=== PATIENT | female | born 1940 | race African-American/Black ===

== ENCOUNTER 2018-11-17 17:14 | Inpatient (IN) | payer MEDICARE, BC ==
[~2018-11-17] VITALS: Ht 160 cm; Wt 67.1 kg
[2018-11-17] VITALS (11 sets, daily range): BP systolic 89–126; BP diastolic 48–93
[~2018-11-17 17:14] MED LIST: COLC0.6T66 PO; HYDR-4067 PO; INDO25CA18 PO; INSLAN SQ; LEVO112T7 PO; METF-414 PO; METO-539 PO; PRAV20TA57 PO; SULFAMETHOXAZOLE; TRIMETHOPRIM; VALS160T2 PO; WARF-53 PO; [UNRECOGNIZED DRUG - OTHER] PO
[2018-11-17 18:11] LABS: BASOPHILS % 0.2 % (0.0-2.0); HEMATOCRIT. 24.5 % (36.0-48.0); LYMPHOCYTES % 9.3 % (20.0-50.0); MEAN CORPUSCULAR HEMOGLOBIN 28.7 pg (28.0-32.0); MEAN CORPUSCULAR VOLUME 88.1 fL (81.0-99.0); MEAN PLATELET VOLUME 9.6 fl (7.4-10.4); MONOCYTES % 6.3 % (2.0-8.0); NEUTROPHILS % 84.2 % (40.0-76.0); PLATELET 182 x1000/uL (130-400); RED BLOOD CELL COUNT 2.79 mill/uL (4.2-5.4); RED CELL DISTRIBUTION WIDTH 14.3 % (11.6-14.6)
[2018-11-17 18:17] LABS: CHLORIDE 97 mEq/L (98-107)
[2018-11-17 18:20] LABS: INR 2.2; PARTIAL THROMBOPLASTIN TIME 47.4 sec (23.4-31.0); PROTHROMBIN TIME 21.4 sec (9.6-11.0)
[2018-11-17 18:26] LABS: BETA HYDROXYBUTYRATE 2.2 mMol/L (0.0-0.3); T4 FREE 0.63 ng/dL (0.76-1.46)
[2018-11-17] MEDS ORDERED: ONDANSETRON HCL 4MG/2ML INJ IV ONE (18:30)
[2018-11-17] MEDS ORDERED: FAMOTIDINE 20MG/2ML VIAL IV ONE (18:30)
[2018-11-17 18:42] LABS: BG BASE EXCESS -9.9 mmol/L (-2.0-2.0); BG CARBOXYHEMOGLOBIN 0.3 % (0.5-1.5); BG DEOXYHEMOGLOBIN 13.2 % (0.0-5.0); BG FRACTION INSPIRED OXYGEN 32; BG HCO3 ACT 13.4 mmol/L (22.0-26.0); BG METHEMOGLOBIN 0.2 % (0.0-1.5); BG OXYGEN SATURATION 86.7 % (92.0-98.5); BG OXYHEMOGLOBIN 86.3 % (94.0-97.0); BG PCO2 21.8 mmHg (35.0-45.0); BG PH 7.405 (7.350-7.450); BG PO2 59.1 mmHg (75.0-100.0); BG SAMPLE SITE RIGHT RADIAL; BG TOTAL HEMOGLOBIN 9.1 g/dL (12.0-18.0); BG VENT MODE NASAL CANNULA
[2018-11-17] MEDS ORDERED: MAGNESIUM/ALUMINUM HYDROXIDE/SIMETHICONE 30ML UDC PO PRN (19:30)
[2018-11-17] MEDS ORDERED: NITROGLYCERIN 0.4MG TABLET SL SL PRN (19:30)
[2018-11-17] MEDS ORDERED: MORPHINE SULFATE 4 MG/ML CPJ (NOT FOR IM USE) IV PRN (19:30)
[2018-11-17] MEDS ORDERED: ACETAMINOPHEN 325MG TABLET PO PRN (19:30)
[2018-11-17] MEDS ORDERED: CLONIDINE 0.1MG TABLET PO PRN (19:30)
[2018-11-17] MEDS ORDERED: INSULIN REGULAR (HUMULIN R) 300UNITS/3ML IV ONE (19:30)
[2018-11-17] MEDS ORDERED: IPRATROPIUM/ALBUTEROL 0.5-3(2.5)MG/3ML NEB INH PRN (19:30)
[2018-11-17] MEDS ORDERED: ZOLPIDEM TARTRATE 5MG TABLET PO PRN (19:30)
[2018-11-17] MEDS ORDERED: FUROSEMIDE 20MG/2ML VIAL IVP ONE (19:30)
[2018-11-17] MEDS ORDERED: TRAMADOL 50MG TABLET PO PRN (19:30)
[2018-11-17] MEDS ORDERED: GUAIFENESIN 200MG/10ML SUGAR FREE UDC PO PRN (19:30)
[2018-11-17] MEDS ORDERED: DEXTROSE 50% WATER 50ML SYRINGE IV PRN (19:30)
[2018-11-17] MEDS ORDERED: DOCUSATE SODIUM 100MG CAPSULE PO PRN (19:30)
[2018-11-17] MEDS ORDERED: CEFTRIAXONE 1 G PREMIX 50 ML IV ONE (19:45)
[2018-11-17] MEDS ORDERED: AZITHROMYCIN 500 MG in DEXT 5% WATER 250 ML IV SCH (20:15)
[2018-11-17 20:31] LABS: FOLIC ACID (FOLATE) SERUM >20 ng/mL ng/mL (>5.38)
[2018-11-17 20:42] LABS: VITAMIN B12 SERUM >2000 pg/mL pg/mL (211-911)
[2018-11-17] MEDS: GUAIFENESIN/DM 600MG/30MG ER TAB 12HR PO SCH (21:00)
[2018-11-17] MEDS ORDERED: BLOOD SUGAR DIAGNOSTIC STRIP TEST SCH (21:00)
[2018-11-17] MEDS: ASCORBIC ACID 500 MG TABLET PO SCH (21:00)
[2018-11-17] MEDS ORDERED: METOLAZONE 10MG TABLET PO NR (21:30)
[2018-11-17] MEDS ORDERED: METOPROLOL TARTRATE 25MG TABLET PO SCH (21:30)
[2018-11-17] MEDS ORDERED: INSULIN LISPRO 100 UNITS/ML SUBCUT SCH (21:30)
[2018-11-17] MEDS: FAMOTIDINE 20MG TABLET PO SCH (21:45)
[2018-11-17] MEDS ORDERED: SODIUM CHLORIDE 0.45% 1,000 ML IV SCH (21:45)
[2018-11-17 22:00] LABS: PHOSPHORUS 4.8 mg/dL (2.5-4.9)
[2018-11-17] MEDS ORDERED: WARFARIN SODIUM 2MG TABLET PO NR (22:00)
[2018-11-17] MEDS: HYDRALAZINE HCL 50MG TABLET PO SCH (22:00)
[2018-11-17] MEDS ORDERED: INSULIN GLARGINE UD 100 UNITS/ML SYR SUBCUT SCH (22:30)
[2018-11-17] MEDS: FUROSEMIDE 40MG/4ML VIAL IVP SCH (22:57)
[2018-11-17 22:58] LABS: CHLORIDE 97 mEq/L (98-107)
[2018-11-17 22:59] LABS: HEMATOCRIT. 23.8 % (36.0-48.0); HEMOGLOBIN. 7.6 g/dL (12.0-16.0); MEAN CORPUSCULAR HEMOGLOBIN 28.5 pg (28.0-32.0); MEAN CORPUSCULAR VOLUME 89.2 fL (81.0-99.0); MEAN PLATELET VOLUME 9.8 fl (7.4-10.4); PLATELET 170 x1000/uL (130-400); RED BLOOD CELL COUNT 2.67 mill/uL (4.2-5.4); RED CELL DISTRIBUTION WIDTH 14.6 % (11.6-14.6)
[2018-11-17 23:15] LABS: PLATELET ESTIMATE NORMAL
[2018-11-18] VITALS (99 sets, daily range): BP systolic 67–192; BP diastolic 18–138
[2018-11-18] MEDS: BLOOD SUGAR DIAGNOSTIC STRIP TEST SCH ×6 (00:03→19:48)
[2018-11-18] MEDS: INSULIN LISPRO 100 UNITS/ML SUBCUT SCH ×6 (00:06→19:48)
[2018-11-18] MEDS: HYDRALAZINE HCL 50MG TABLET PO SCH (05:14)
[2018-11-18 06:09] LABS: BASOPHILS % 0.3 % (0.0-2.0); HEMATOCRIT. 23.9 % (36.0-48.0); HEMOGLOBIN. 7.9 g/dL (12.0-16.0); LYMPHOCYTES % 11.1 % (20.0-50.0); MEAN CORPUSCULAR HEMOGLOBIN 28.6 pg (28.0-32.0); MEAN CORPUSCULAR VOLUME 86.4 fL (81.0-99.0); MEAN PLATELET VOLUME 9.8 fl (7.4-10.4); NEUTROPHILS % 79.6 % (40.0-76.0); PLATELET 172 x1000/uL (130-400); RED BLOOD CELL COUNT 2.76 mill/uL (4.2-5.4); RED CELL DISTRIBUTION WIDTH 14.7 % (11.6-14.6)
[2018-11-18 06:12] LABS: INR 2.6; PROTHROMBIN TIME 25.9 sec (9.6-11.0)
[2018-11-18 06:20] LABS: PHOSPHORUS 4.6 mg/dL (2.5-4.9)
[2018-11-18 06:21] LABS: BETA HYDROXYBUTYRATE 0.2 mMol/L (0.0-0.3)
[2018-11-18] MEDS ORDERED: LEVOTHYROXINE SODIUM 125MCG TABLET PO SCH (06:30)
[2018-11-18] MEDS: FUROSEMIDE 40MG/4ML VIAL IVP SCH (07:33)
[2018-11-18] MEDS: SODIUM CHLORIDE 0.9% 1,000 ML IV SCH (08:26)
[2018-11-18 08:37] LABS: CHLORIDE 98 mEq/L (98-107)
[2018-11-18 08:59] LABS: BG BASE EXCESS -7.2 mmol/L (-2.0-2.0); BG CARBOXYHEMOGLOBIN 0.3 % (0.5-1.5); BG DEOXYHEMOGLOBIN 2.8 % (0.0-5.0); BG FRACTION INSPIRED OXYGEN 70; BG HCO3 ACT 17.1 mmol/L (22.0-26.0); BG OXYGEN SATURATION 97.2 % (92.0-98.5); BG OXYHEMOGLOBIN 96.9 % (94.0-97.0); BG PCO2 29.9 mmHg (35.0-45.0); BG PH 7.375 (7.350-7.450); BG PO2 104.1 mmHg (75.0-100.0); BG SAMPLE SITE RIGHT RADIAL; BG TOTAL HEMOGLOBIN 8.8 g/dL (12.0-18.0); BG VENT MODE VAPOTHERM
[2018-11-18] MEDS ORDERED: CEFTRIAXONE 1 G PREMIX 50 ML IV SCH ×2 (09:00→21:00)
[2018-11-18] MEDS: ASCORBIC ACID 500 MG TABLET PO SCH ×2 (09:47→20:46)
[2018-11-18] MEDS: ZINC SULFATE 220 MG ( 50 ) CAPSULE PO SCH (09:47)
[2018-11-18] MEDS: ASPIRIN 325MG EC TABLET PO SCH (09:47)
[2018-11-18] MEDS: FAMOTIDINE 20MG TABLET PO SCH (09:47)
[2018-11-18] MEDS: GUAIFENESIN/DM 600MG/30MG ER TAB 12HR PO SCH ×2 (09:47→20:46)
[2018-11-18 10:05] LABS: CLARITY URINE TURBID (CLEAR); COLOR URINE YELLOW (YELLOW); KETONES URINE NEGATIVE (NEGATIVE); LEUKOCYTE ESTERASE URINE 3+ (NEGATIVE); NITRITE URINE NEGATIVE (NEGATIVE); OCCULT BLOOD URINE 2+ (NEGATIVE); PROTEIN URINE 3+ (NEGATIVE); SPECIFIC GRAVITY URINE 1.016 (1.005-1.030); UROBILINOGEN URINE 0.2 E.U./dL (0.2-1.0)
[2018-11-18] MEDS ORDERED: NOREPINEPHRINE 4MG in DEXT 5% WATER 250ML IV PRN (11:00)
[2018-11-18] MEDS ORDERED: LIDOCAINE HCL 1% 20ML VIAL (Pyxis) INJ ONE (13:26)
[2018-11-18] MEDS ORDERED: HEPARIN 1000 UNITS/ML 10ML ONE (13:51)
[2018-11-18] MEDS ORDERED: WARFARIN SODIUM 2MG TABLET PO SCH (18:00)
[2018-11-18] MEDS ORDERED: VANCOMYCIN 1250MG in DEXTROSE 5% WATER 250ML IV NR (18:00)
[2018-11-18] MEDS ORDERED: WARFARIN SODIUM 3MG TABLET PO SCH (18:00)
[2018-11-18 18:06] LABS: HEPATITIS B SURFACE ANTIGEN NEGATIVE
[2018-11-18 18:36] LABS: HEPATITIS A AB IGM NEGATIVE (NEGATIVE)
[2018-11-18] MEDS ORDERED: AZITHROMYCIN 500 MG in DEXT 5% WATER 250 ML IV SCH ×4 (20:00)
[2018-11-18] MEDS ORDERED: INSULIN GLARGINE UD 100 UNITS/ML SYR SUBCUT SCH (23:00)
[2018-11-19] VITALS (81 sets, daily range): BP systolic 80–160; BP diastolic 36–87
[2018-11-19] MEDS: BLOOD SUGAR DIAGNOSTIC STRIP TEST SCH ×6 (00:04→23:21)
[2018-11-19] MEDS: SODIUM CHLORIDE 0.9% 1,000 ML IV SCH (03:58)
[2018-11-19 05:17] LABS: BASOPHILS % 0.2 % (0.0-2.0); EOSINOPHILS % 0.1 % (0.0-5.0); LYMPHOCYTES % 9.2 % (20.0-50.0); MEAN CORPUSCULAR HEMOGLOBIN 28.6 pg (28.0-32.0); MEAN CORPUSCULAR VOLUME 85.2 fL (81.0-99.0); MONOCYTES % 6.8 % (2.0-8.0); NEUTROPHILS % 83.7 % (40.0-76.0); PLATELET 134 x1000/uL (130-400); RED CELL DISTRIBUTION WIDTH 14.5 % (11.6-14.6)
[2018-11-19 05:25] LABS: CHLORIDE 99 mEq/L (98-107)
[2018-11-19 05:28] LABS: HEMATOCRIT. 20.4 % (36.0-48.0); HEMOGLOBIN. 6.9 g/dL (12.0-16.0)
[2018-11-19 05:34] LABS: PHOSPHORUS 3.7 mg/dL (2.5-4.9)
[2018-11-19 05:35] LABS: PROTHROMBIN TIME 45.2 sec (9.6-11.0)
[2018-11-19 05:49] LABS: INR 4.7
[2018-11-19] MEDS: INSULIN LISPRO 100 UNITS/ML SUBCUT SCH ×5 (06:00→23:21)
[2018-11-19] MEDS: ASCORBIC ACID 500 MG TABLET PO SCH ×2 (08:40→21:00)
[2018-11-19] MEDS: ASPIRIN 325MG EC TABLET PO SCH (08:40)
[2018-11-19] MEDS: FAMOTIDINE 20MG TABLET PO SCH (08:40)
[2018-11-19] MEDS: ZINC SULFATE 220 MG ( 50 ) CAPSULE PO SCH (08:46)
[2018-11-19] MEDS: GUAIFENESIN/DM 600MG/30MG ER TAB 12HR PO SCH ×2 (08:46→21:00)
[2018-11-19 10:19] LABS: BG BASE EXCESS 1.5 mmol/L (-2.0-2.0); BG CARBOXYHEMOGLOBIN 0.3 % (0.5-1.5); BG FRACTION INSPIRED OXYGEN 28; BG METHEMOGLOBIN 0.6 % (0.0-1.5); BG OXYHEMOGLOBIN 94.1 % (94.0-97.0); BG PCO2 34.4 mmHg (35.0-45.0); BG PO2 81.6 mmHg (75.0-100.0); BG SAMPLE SITE RIGHT BRACHIAL; BG TOTAL HEMOGLOBIN 7.5 g/dL (12.0-18.0); BG VENT MODE NASAL CANNULA
[2018-11-19] MEDS: LEVOTHYROXINE SODIUM 100 MCG/ VIAL IV SCH (10:35)
[2018-11-19] MEDS: PIPERACILLIN/TAZ 3.375G PREMIX 50 ML IV SCH ×2 (13:09→23:32)
[2018-11-19] MEDS ORDERED: IPRATROPIUM/ALBUTEROL 0.5-3(2.5)MG/3ML NEB HHN PRN (14:00)
[2018-11-19] MEDS ORDERED: VANCOMYCIN 750 MG PREMIX 150 ML IV SCH (15:00)
[2018-11-19] MEDS: IPRATROPIUM/ALBUTEROL 0.5-3(2.5)MG/3ML NEB HHN SCH (21:42)
[2018-11-20] VITALS (41 sets, daily range): BP systolic 106–142; BP diastolic 48–76
[2018-11-20] MEDS: SODIUM CHLORIDE 0.9% 1,000 ML IV SCH
[2018-11-20] MEDS: IPRATROPIUM/ALBUTEROL 0.5-3(2.5)MG/3ML NEB HHN SCH ×4 (02:27→20:03)
[2018-11-20 05:05] LABS: BASOPHILS % 0.3 % (0.0-2.0); EOSINOPHILS % 0.6 % (0.0-5.0); HEMATOCRIT. 24.8 % (36.0-48.0); HEMOGLOBIN. 8.3 g/dL (12.0-16.0); LYMPHOCYTES % 8.2 % (20.0-50.0); MEAN CORPUSCULAR HEMOGLOBIN 28.1 pg (28.0-32.0); MEAN CORPUSCULAR VOLUME 84.2 fL (81.0-99.0); MEAN PLATELET VOLUME 9.8 fl (7.4-10.4); NEUTROPHILS % 85.9 % (40.0-76.0); PLATELET 122 x1000/uL (130-400); RED BLOOD CELL COUNT 2.95 mill/uL (4.2-5.4); RED CELL DISTRIBUTION WIDTH 15.6 % (11.6-14.6)
[2018-11-20 05:21] LABS: PROTHROMBIN TIME 61.9 sec (9.6-11.0)
[2018-11-20] MEDS: INSULIN LISPRO 100 UNITS/ML SUBCUT SCH ×3 (06:00→18:00)
[2018-11-20] MEDS: BLOOD SUGAR DIAGNOSTIC STRIP TEST SCH ×3 (06:42→18:31)
[2018-11-20 07:22] LABS: INR 6.6
[2018-11-20 08:11] LABS: HIV SCREEN 4G Non Reactive (Non Reactive)
[2018-11-20] MEDS: FAMOTIDINE 20MG TABLET PO SCH (09:00)
[2018-11-20] MEDS: ZINC SULFATE 220 MG ( 50 ) CAPSULE PO SCH (09:00)
[2018-11-20] MEDS: GUAIFENESIN/DM 600MG/30MG ER TAB 12HR PO SCH ×2 (09:00→20:52)
[2018-11-20] MEDS: ASCORBIC ACID 500 MG TABLET PO SCH ×2 (09:00→20:51)
[2018-11-20] MEDS: LEVOTHYROXINE SODIUM 100 MCG/ VIAL IV SCH (10:16)
[2018-11-20] MEDS: PIPERACILLIN/TAZ 3.375G PREMIX 50 ML IV SCH (11:46)
[2018-11-21] VITALS (63 sets, daily range): BP systolic 90–141; BP diastolic 49–79
[2018-11-21] MEDS: BLOOD SUGAR DIAGNOSTIC STRIP TEST SCH ×5 (00:09→23:57)
[2018-11-21] MEDS: PIPERACILLIN/TAZ 3.375G PREMIX 50 ML IV SCH ×2 (00:14→12:27)
[2018-11-21] MEDS: INSULIN LISPRO 100 UNITS/ML SUBCUT SCH ×5 (00:14→23:59)
[2018-11-21] MEDS: IPRATROPIUM/ALBUTEROL 0.5-3(2.5)MG/3ML NEB HHN SCH ×4 (01:42→20:43)
[2018-11-21 05:37] LABS: HEMATOCRIT. 24.9 % (36.0-48.0); MEAN CORPUSCULAR HEMOGLOBIN 27.6 pg (28.0-32.0); MEAN CORPUSCULAR VOLUME 85.9 fL (81.0-99.0); MEAN PLATELET VOLUME 9.2 fl (7.4-10.4); PLATELET 155 x1000/uL (130-400); RED CELL DISTRIBUTION WIDTH 16.2 % (11.6-14.6)
[2018-11-21 05:45] LABS: CHLORIDE 94 mEq/L (98-107)
[2018-11-21 05:52] LABS: PHOSPHORUS 5.7 mg/dL (2.5-4.9)
[2018-11-21 05:57] LABS: PROTHROMBIN TIME 53.4 sec (9.6-11.0)
[2018-11-21] MEDS: LEVOTHYROXINE SODIUM 100 MCG/ VIAL IV SCH (06:12)
[2018-11-21 07:03] LABS: INR 5.6
[2018-11-21] MEDS: GUAIFENESIN/DM 600MG/30MG ER TAB 12HR PO SCH ×2 (09:00→21:00)
[2018-11-21] MEDS: SILVER SULFADIAZINE 1% CREAM 25GM TOP SCH ×2 (09:00→21:00)
[2018-11-21] MEDS: ALBUMIN HUMAN 25GM/100ML (25%) IV SCH ×2 (11:03→18:40)
[2018-11-21] MEDS ORDERED: INSULIN GLARGINE UD 100 UNITS/ML SYR SUBCUT SCH (11:30)
[2018-11-21] MEDS: FAMOTIDINE 20MG TABLET PO SCH (11:49)
[2018-11-21] MEDS: ASCORBIC ACID 500 MG TABLET PO SCH ×2 (11:49→21:00)
[2018-11-21] MEDS: ZINC SULFATE 220 MG ( 50 ) CAPSULE PO SCH (11:49)
[2018-11-21 15:16] LABS: PLATELET ESTIMATE NORMAL
[2018-11-21] MEDS: CEFAZOLIN 2000MG in DEXTROSE 5% WATER 100ML IV SCH (16:59)
[2018-11-22] VITALS (75 sets, daily range): BP systolic 98–161; BP diastolic 51–96
[2018-11-22] MEDS: IPRATROPIUM/ALBUTEROL 0.5-3(2.5)MG/3ML NEB HHN SCH ×4 (01:57→20:56)
[2018-11-22] MEDS: ONDANSETRON HCL 4MG/2ML INJ IV PRN (02:06)
[2018-11-22] MEDS: ALBUMIN HUMAN 25GM/100ML (25%) IV SCH (02:10)
[2018-11-22] MEDS: BLOOD SUGAR DIAGNOSTIC STRIP TEST SCH ×3 (05:24→18:00)
[2018-11-22] MEDS: LEVOTHYROXINE SODIUM 100 MCG/ VIAL IV SCH (05:24)
[2018-11-22] MEDS: INSULIN LISPRO 100 UNITS/ML SUBCUT SCH ×3 (05:25→18:00)
[2018-11-22 05:35] LABS: HEMATOCRIT. 23.7 % (36.0-48.0); HEMOGLOBIN. 7.6 g/dL (12.0-16.0); MEAN CORPUSCULAR HEMOGLOBIN 27.7 pg (28.0-32.0); MEAN CORPUSCULAR VOLUME 86.6 fL (81.0-99.0); PLATELET 144 x1000/uL (130-400); RED BLOOD CELL COUNT 2.74 mill/uL (4.2-5.4); RED CELL DISTRIBUTION WIDTH 16.8 % (11.6-14.6)
[2018-11-22 05:36] LABS: CHLORIDE 101 mEq/L (98-107)
[2018-11-22] MEDS: ZINC SULFATE 220 MG ( 50 ) CAPSULE PO SCH (08:46)
[2018-11-22] MEDS: ASCORBIC ACID 500 MG TABLET PO SCH ×2 (08:46→21:49)
[2018-11-22] MEDS: FAMOTIDINE 20MG TABLET PO SCH (08:46)
[2018-11-22] MEDS: GUAIFENESIN/DM 600MG/30MG ER TAB 12HR PO SCH ×2 (08:46→21:49)
[2018-11-22] MEDS: SILVER SULFADIAZINE 1% CREAM 25GM TOP SCH ×2 (08:47→21:50)
[2018-11-22] MEDS: INSULIN GLARGINE UD 100 UNITS/ML SYR SUBCUT SCH (09:02)
[2018-11-22 09:03] LABS: NUCLEATED RED BLOOD CELLS 1 /100 WBC; PLATELET ESTIMATE NORMAL
[2018-11-22] MEDS ORDERED: METRONIDAZOLE 500 MG PREMIX 100 ML IV SCH (12:00)
[2018-11-22] MEDS: CEFAZOLIN 2000MG in DEXTROSE 5% WATER 100ML IV SCH (15:01)
[2018-11-23] VITALS (12 sets, daily range): BP systolic 115–144; BP diastolic 49–80
[2018-11-23] MEDS: ACETYLCYSTEINE 100MG/ML 10% VIAL 4ML INH SCH ×3 (01:41→14:06)
[2018-11-23] MEDS: IPRATROPIUM/ALBUTEROL 0.5-3(2.5)MG/3ML NEB HHN SCH ×4 (01:41→20:50)
[2018-11-23] MEDS: BLOOD SUGAR DIAGNOSTIC STRIP TEST SCH ×4 (06:42→18:25)
[2018-11-23] MEDS: INSULIN LISPRO 100 UNITS/ML SUBCUT SCH ×4 (06:49→18:30)
[2018-11-23 07:04] LABS: HEMATOCRIT. 24.3 % (36.0-48.0); HEMOGLOBIN. 7.7 g/dL (12.0-16.0); MEAN CORPUSCULAR HEMOGLOBIN 27.8 pg (28.0-32.0); MEAN CORPUSCULAR VOLUME 87.8 fL (81.0-99.0); PLATELET 166 x1000/uL (130-400); RED BLOOD CELL COUNT 2.77 mill/uL (4.2-5.4)
[2018-11-23 07:12] LABS: INR 3.8; PROTHROMBIN TIME 36.8 sec (9.6-11.0)
[2018-11-23 07:18] LABS: CHLORIDE 99 mEq/L (98-107)
[2018-11-23 07:26] LABS: PHOSPHORUS 5.8 mg/dL (2.5-4.9)
[2018-11-23] MEDS: INSULIN GLARGINE UD 100 UNITS/ML SYR SUBCUT SCH (10:00)
[2018-11-23 14:06] LABS: PLATELET ESTIMATE NORMAL
[2018-11-23] MEDS: SILVER SULFADIAZINE 1% CREAM 25GM TOP SCH ×2 (16:35→21:00)
[2018-11-23] MEDS: LEVOTHYROXINE SODIUM 100 MCG/ VIAL IV SCH (16:35)
[2018-11-23] MEDS: ZINC SULFATE 220 MG ( 50 ) CAPSULE PO SCH (16:36)
[2018-11-23] MEDS: ASCORBIC ACID 500 MG TABLET PO SCH ×2 (16:36→21:36)
[2018-11-23] MEDS: FAMOTIDINE 20MG TABLET PO SCH (16:36)
[2018-11-23] MEDS: CEFAZOLIN 2000MG in DEXTROSE 5% WATER 100ML IV SCH (16:36)
[2018-11-23] MEDS: GUAIFENESIN/DM 600MG/30MG ER TAB 12HR PO SCH ×2 (16:36→21:36)
[2018-11-24] VITALS (12 sets, daily range): BP systolic 108–127; BP diastolic 51–72
[2018-11-24] MEDS: BLOOD SUGAR DIAGNOSTIC STRIP TEST SCH ×4 (00:45→18:13)
[2018-11-24] MEDS: INSULIN LISPRO 100 UNITS/ML SUBCUT SCH ×4 (00:52→18:27)
[2018-11-24] MEDS: IPRATROPIUM/ALBUTEROL 0.5-3(2.5)MG/3ML NEB HHN SCH ×4 (02:39→22:03)
[2018-11-24] MEDS: LEVOTHYROXINE SODIUM 100 MCG/ VIAL IV SCH (06:56)
[2018-11-24 06:57] LABS: HEMATOCRIT. 24.2 % (36.0-48.0); HEMOGLOBIN. 7.7 g/dL (12.0-16.0); MEAN CORPUSCULAR HEMOGLOBIN 28.4 pg (28.0-32.0); MEAN PLATELET VOLUME 9.1 fl (7.4-10.4); PLATELET 177 x1000/uL (130-400); RED BLOOD CELL COUNT 2.72 mill/uL (4.2-5.4); RED CELL DISTRIBUTION WIDTH 17.3 % (11.6-14.6)
[2018-11-24 07:28] LABS: CHLORIDE 107 mEq/L (98-107)
[2018-11-24 07:34] LABS: PHOSPHORUS 3.8 mg/dL (2.5-4.9)
[2018-11-24] MEDS: FAMOTIDINE 20MG TABLET PO SCH (08:36)
[2018-11-24] MEDS: ZINC SULFATE 220 MG ( 50 ) CAPSULE PO SCH (08:36)
[2018-11-24] MEDS: GUAIFENESIN/DM 600MG/30MG ER TAB 12HR PO SCH ×2 (08:36→22:29)
[2018-11-24] MEDS: ASCORBIC ACID 500 MG TABLET PO SCH ×2 (08:36→22:29)
[2018-11-24] MEDS: SILVER SULFADIAZINE 1% CREAM 25GM TOP SCH ×2 (08:37→22:30)
[2018-11-24] MEDS: ONDANSETRON HCL 4MG/2ML INJ IV PRN ×2 (08:52→22:45)
[2018-11-24] MEDS: ACETYLCYSTEINE 100MG/ML 10% VIAL 4ML INH SCH ×2 (09:01→14:56)
[2018-11-24] MEDS ORDERED: LIDOCAINE HCL 1% 20ML VIAL (Pyxis) INJ ONE (11:20)
[2018-11-24] MEDS ORDERED: FENTANYL CITRATE/PF 50MCG/ML 2ML VIAL ONE (11:20)
[2018-11-24] MEDS ORDERED: PROPOFOL 200MG/20ML VIAL IV ONE (11:20)
[2018-11-24] MEDS ORDERED: CEFAZOLIN SODIUM 1000MG/VIAL ONE (11:21)
[2018-11-24] MEDS ORDERED: SODIUM CHLORIDE 0.9% 10ML VIAL ONE (11:21)
[2018-11-24] MEDS: INSULIN GLARGINE UD 100 UNITS/ML SYR SUBCUT SCH (11:30)
[2018-11-24] MEDS: CEFAZOLIN 2000MG in DEXTROSE 5% WATER 100ML IV SCH (16:14)
[2018-11-24 16:31] LABS: INR 2.4; PROTHROMBIN TIME 24.2 sec (9.6-11.0)
[2018-11-24 17:11] LABS: PLATELET ESTIMATE NORMAL
[2018-11-25] VITALS (12 sets, daily range): BP systolic 109–148; BP diastolic 56–76
[2018-11-25] MEDS: IPRATROPIUM/ALBUTEROL 0.5-3(2.5)MG/3ML NEB HHN SCH ×4 (02:48→20:48)
[2018-11-25] MEDS: BLOOD SUGAR DIAGNOSTIC STRIP TEST SCH ×3 (06:00→12:00)
[2018-11-25] MEDS: INSULIN LISPRO 100 UNITS/ML SUBCUT SCH ×4 (08:00→19:38)
[2018-11-25] MEDS: LEVOTHYROXINE SODIUM 100 MCG/ VIAL IV SCH (08:10)
[2018-11-25] MEDS: GUAIFENESIN/DM 600MG/30MG ER TAB 12HR PO SCH ×2 (08:22→20:27)
[2018-11-25] MEDS: FAMOTIDINE 20MG TABLET PO SCH (08:22)
[2018-11-25] MEDS: ASCORBIC ACID 500 MG TABLET PO SCH ×2 (08:22→20:27)
[2018-11-25] MEDS: SILVER SULFADIAZINE 1% CREAM 25GM TOP SCH ×2 (08:23→22:15)
[2018-11-25 09:04] LABS: BASOPHILS % 0.3 % (0.0-2.0); EOSINOPHILS % 2.3 % (0.0-5.0); HEMATOCRIT. 24.7 % (36.0-48.0); HEMOGLOBIN. 7.7 g/dL (12.0-16.0); LYMPHOCYTES % 7.4 % (20.0-50.0); MEAN CORPUSCULAR HEMOGLOBIN 27.8 pg (28.0-32.0); MEAN CORPUSCULAR VOLUME 89.7 fL (81.0-99.0); MEAN PLATELET VOLUME 8.6 fl (7.4-10.4); MONOCYTES % 9.9 % (2.0-8.0); NEUTROPHILS % 80.1 % (40.0-76.0); PLATELET 205 x1000/uL (130-400); RED BLOOD CELL COUNT 2.75 mill/uL (4.2-5.4); RED CELL DISTRIBUTION WIDTH 17.4 % (11.6-14.6)
[2018-11-25 09:06] LABS: PROTHROMBIN TIME 20.5 sec (9.6-11.0)
[2018-11-25] MEDS: ACETYLCYSTEINE 100MG/ML 10% VIAL 4ML INH SCH ×2 (09:09→16:58)
[2018-11-25 09:18] LABS: CHLORIDE 107 mEq/L (98-107)
[2018-11-25 09:26] LABS: PHOSPHORUS 5.2 mg/dL (2.5-4.9)
[2018-11-25 09:27] LABS: HDL CHOLESTEROL 30 mg/dL (40-59); LDL CHOLESTEROL 57 mg/dL (5-100)
[2018-11-25] MEDS: ONDANSETRON HCL 4MG/2ML INJ IV PRN ×2 (09:33→20:34)
[2018-11-25] MEDS: INSULIN GLARGINE UD 100 UNITS/ML SYR SUBCUT SCH (09:34)
[2018-11-25 10:03] LABS: FOLIC ACID (FOLATE) SERUM > 20.00 ng/mL (>5.38); VITAMIN B12 SERUM > 2000.0 pg/mL (211-911)
[2018-11-25] MEDS: CEFAZOLIN 2000MG in DEXTROSE 5% WATER 100ML IV SCH (17:18)
[2018-11-25] MEDS ORDERED: WARFARIN SODIUM 1MG TABLET PO SCH (18:00)
[2018-11-25] MEDS ORDERED: IOHEXOL-350 100 ML BOTTLE ONE (21:05)
[2018-11-26] MEDS ORDERED: LEVOTHYROXINE SODIUM 100 MCG/ VIAL IV SCH (07:30)
== END 2018-11-26 00:08 | DRG 871 ==
LOC: ER 17:14 → MICUSO 19:20 → EDBEDREQ 19:22 → SUPCPDRO 19:28 → ENRESERV 20:20 → 5EST 11-22 18:55
PROVIDERS: ADMIT Internal Medicine; ATTEND Internal Medicine
PROC: 02HV33Z Insertion of Infusion Device into Superior Vena Cava, Percutaneous Approach (ICD-10-PCS; principal; 2018-11-18)
PROC: B548ZZA Ultrasonography of Superior Vena Cava, Guidance (ICD-10-PCS; 2018-11-18)
PROC: 5A1D70Z Performance of Urinary Filtration, Intermittent, Less than 6 Hours Per Day (ICD-10-PCS; 2018-11-18)
PROC: 30233N1 Transfusion of Nonautologous Red Blood Cells into Peripheral Vein, Percutaneous Approach (ICD-10-PCS; 2018-11-19)
PROC: 5A1D70Z Performance of Urinary Filtration, Intermittent, Less than 6 Hours Per Day (ICD-10-PCS; 2018-11-19)
PROC: 5A1D70Z Performance of Urinary Filtration, Intermittent, Less than 6 Hours Per Day (ICD-10-PCS; 2018-11-21)
PROC: 5A09357 Assistance with Respiratory Ventilation, Less than 24 Consecutive Hours, Continuous Positive Airway Pressure (ICD-10-PCS; 2018-11-22)
PROC: 5A1D70Z Performance of Urinary Filtration, Intermittent, Less than 6 Hours Per Day (ICD-10-PCS; 2018-11-23)
PROC: 5A09357 Assistance with Respiratory Ventilation, Less than 24 Consecutive Hours, Continuous Positive Airway Pressure (ICD-10-PCS; 2018-11-23)
PROC: 5A1D70Z Performance of Urinary Filtration, Intermittent, Less than 6 Hours Per Day (ICD-10-PCS; 2018-11-25)
DX: A40.1 Sepsis due to streptococcus, group B (principal); J96.01 Acute respiratory failure with hypoxia; I50.33 Acute on chronic diastolic (congestive) heart failure; E43 Unspecified severe protein-calorie malnutrition; R65.21 Severe sepsis with septic shock; I21.4 Non-ST elevation (NSTEMI) myocardial infarction; K72.00 Acute and subacute hepatic failure without coma; E11.10 Type 2 diabetes mellitus with ketoacidosis without coma; I63.9 Cerebral infarction, unspecified; J18.9 Pneumonia, unspecified organism; G92 Toxic encephalopathy; E87.1 Hypo-osmolality and hyponatremia; N39.0 Urinary tract infection, site not specified; I42.9 Cardiomyopathy, unspecified; I13.0 Hypertensive heart and chronic kidney disease with heart failure and stage 1 through stage 4 chronic kidney disease, or unspecified chronic kidney disease; D68.9 Coagulation defect, unspecified; L03.116 Cellulitis of left lower limb; N17.9 Acute kidney failure, unspecified; N18.9 Chronic kidney disease, unspecified; E87.5 Hyperkalemia; B96.1 Klebsiella pneumoniae [K. pneumoniae] as the cause of diseases classified elsewhere; D63.8 Anemia in other chronic diseases classified elsewhere; E06.3 Autoimmune thyroiditis; E11.22 Type 2 diabetes mellitus with diabetic chronic kidney disease; E21.0 Primary hyperparathyroidism; E78.00 Pure hypercholesterolemia, unspecified; H91.90 Unspecified hearing loss, unspecified ear; I25.41 Coronary artery aneurysm; I27.20 Pulmonary hypertension, unspecified; I35.0 Nonrheumatic aortic (valve) stenosis; L89.159 Pressure ulcer of sacral region, unspecified stage; I44.7 Left bundle-branch block, unspecified; I67.1 Cerebral aneurysm, nonruptured; Z77.22 Contact with and (suspected) exposure to environmental tobacco smoke (acute) (chronic); Z79.01 Long term (current) use of anticoagulants; Z79.4 Long term (current) use of insulin; Z82.49 Family history of ischemic heart disease and other diseases of the circulatory system; Z90.49 Acquired absence of other specified parts of digestive tract; Z95.2 Presence of prosthetic heart valve; Z79.2 Long term (current) use of antibiotics; Z79.84 Long term (current) use of oral hypoglycemic drugs
CPT/HCPCS: 36415; 36556; 36569; 36600; 70496; 70544; 70551; 71045; 76770; 76937; 80048; 80061; 80202; 82010; 82140; 82270; 82375; 82570; 82607; 82746; 82805; 82962; 83036; 83540; 83550; 83605; 83735; 83880; 83935; 84100; 84134; 84145; 84156; 84300; 84439; 84443; 84481; 84484; 85044; 86705; 86709; 86803; 86850; 86900; 86920; 87077; 87186; 87340; 87389; 92610; 92950; 93005; 93306; 93880; 93970; 94640; 94667; 96365; 96375; 97112; 97163; 97167; 97530; 99291; A6261; C1725; C1752; J0456; J0690; J0696; J1644; J1815; J1940; J2270; J2405; J2543; J2704; J3010; J3370; J3490; J7030; J7050; J7060; J7608; J7620; P9016; P9047; Q9967